=== PATIENT | female | born 1970 | race Caucasian/White ===

== ENCOUNTER 2022-08-07 09:22 | Outpatient (CLI) | payer BC, SELFPAY ==
[2022-08-07 14:04] LABS: Lipase* 72 U/L (23-300)
[2022-08-07 14:23] LABS: TSH With Reflex to FT4* 0.842 uIU/mL (0.270-4.200)
[2022-08-09 15:34] LABS: CRP, High Sensitivity 0.9 mg/L (<=3.0)
== END 2022-08-07 09:23 | disposition home or self-care (01) ==
PROVIDERS: PCP Physician Assistant Medical; Visit Provider Physician Assistant Medical
DX: R10.9 Unspecified abdominal pain (principal); R19.7 Diarrhea, unspecified
CPT/HCPCS: 80053; 83516; 83690; 84443; 86141

== ENCOUNTER 2022-08-08 14:51 | Emergency (ER) | payer BC, SELFPAY ==
[2022-08-08 15:07] VITALS: BP 131/77; PULSE 88; TEMP 36.4; O2SAT 98; BMI 23.7
--- NOTE | 2022-08-08 15:35 | CRLHL7_ITS ---
For Patients: As a result of the Century Cures Act, medical imaging exams and procedure reports are released immediately into your electronic medical record. You may view this report before your referring provider. If you have questions, please contact your health care provider. INDICATION: Right lower quadrant pain. TECHNIQUE: CT abdomen and pelvis acquired with 72 cc Isovue 370 IV contrast. COMPARISON: None. FINDINGS: Lower chest: Scattered dependent atelectasis. Liver: Scattered tiny hypodensities, too small to characterize.. Normal in size and attenuation. No suspicious masses. Gallbladder and bile ducts: Cholecystectomy. Mild intra/extrahepatic ductal dilation, likely reservoir effect. Pancreas: Unremarkable. No mass or inflammation. Spleen: Unremarkable. Normal in size. No masses. Adrenal glands: Unremarkable. No nodules. Kidneys: Mild right greater than left urothelial enhancement. Extrarenal pelvises without hydronephrosis. No definite obstructing renal stone. Few tiny scattered pelvic phleboliths. GI tract: Unremarkable. Normal in caliber. No sign of mass or inflammation. Normal appendix. Vasculature: Abdominal aorta is normal in caliber. Mesenteric arteries are patent. Lymph nodes: No lymphadenopathy. Peritoneum/Abdominal Wall: Tiny fat containing umbilical hernia. No sign of mass or infiltration. No free air or significant free fluid. Pelvis: Bladder is mildly distended with circumferential wall thickening. Bones: Degenerative changes. IMPRESSION: Mild circumferential bladder wall thickening, with subtle [id number]-left urothelial wall enhancement which could suggest urinary tract infection. Recommend correlation with urinalysis. Few pelvic phleboliths. No definite distal obstructing stones or hydronephrosis. No appendicitis, as questioned. Please note that all CT scans at this facility use dose modulation, iterative reconstruction, and/or weight-based dosing when appropriate to reduce radiation dose to as low as reasonably achievable. Dictated by Simon Arevalo MD @ 08/08/2022 4:30:04 PM (Electronically Signed)
--- NOTE | 2022-08-08 15:40 | ED_ITS ---
HPI - Abdominal Pain General Chief Complaint: Abdominal Pain Stated Complaint: Abdominal Pain w Diarrhea Time Seen by Provider: 08/08/22 15:01 History of Present Illness HPI narrative: 52-year-old woman presenting with her to the emergency department with complaint of increasing lower abdominal pain. This is in the setting of about 3 weeks of persistent diarrhea. She has had diarrhea maybe 5 times a day watery stools. Does not sound as though much abdominal pain was associated with this. Started to have a periumbilical maybe little bit above that pain starting 2 days ago which has now concentrated more in the right lower abdomen. Stool analysis was ordered yesterday in clinic. She has none not been on any recent antibiotics. She has not had a fever. Stomach isn't feeling the greatest but not particularly nauseated. Had a cholecystectomy years ago following a for cholecystitis. has not really struggled after that. Sometimes eggs will make her own to the bathroom. But otherwise denies generally food intolerances. This persistent diarrhea is definitely new. Denies dysuria frequency urgency. Menses was 1 week ago and is quite regular on oral contraceptives. Pain initially in her upper abdomen stomach area felt like somebody was reaching in squeezing from the inside. It now she describes it as sharp in the right lower quadrant. It feels better somehow to bring her legs up. Related Data Home Medications Medication Instructions Recorded Confirmed control pill PO 08/07/22 Allergies Allergy/AdvReac Type Severity Reaction Status Date / Time Penicillins Allergy Intermediate Vomiting Verified 08/07/22 09:00 prochlorperazine AdvReac Severe lock jaw Verified 08/07/22 09:00 Review of Systems Status of ROS Reports: 10 or more systems reviewed and unremarkable except as noted in History and below [facility] Medical History (Updated 08/08/22 @ 17:48 by Joey Garcia MD) Sinusitis (2021) Surgical History (Updated 08/07/22 @ 09:45 by Sonali Manzo PA-C) History of cholecystectomy Social History Smoking Status: Never smoker Do you use any of these nicotine containing products: None Second hand tobacco smoke exposure: No How often do you have a drink containing alcohol: never How often do you have six or more drinks on one occasion: Never AUDIT-C Alcohol total score: 0 Non-prescribed substance use: denies use Exam Narrative: Exam Narrative: Pleasant. NAD. Cranial nerves 2-12 intact Breathing easily. Speaking easily. Lungs are clear. Oropharynx is sticky. Cardiovascular with regular rate and rhythm no murmur rub or gallop identified. Abdomen is soft. There is no flank pain. Normoactive bowel sounds. No masses appreciated. She is without peritoneal signs. Clearly very tender in the suprapubic but then also in the right lower abdomen. Moving all extremities without difficulty. Well-perfused. No peripheral edema. Const: Vital Signs, click to edit/add: Vital Signs - 24 hr 08/08/22 15:07 08/08/22 16:15 Temperature 97.5 F L Pulse Rate [Left P ulse Oximeter] 88 73 Blood Pressure [Ri ght Upper Arm] 131/77 132/77 Pulse Oximetry 98 100 Oxygen Delivery Me thod Room Air Room Air Documenting provider has reviewed patient's vital signs: yes Course Course Hospital Course: Initiated on IV fluids and proceed with CT scan. Discussed pain management and we settle on ketorolac. This did decrease her pain to a more tolerable level though clearly still uncomfortable. Consultations Consultation #1: I did call to discuss further with radiology findings on CT. Question particularly for the right adnexal area. We reviewed the images together. Vital Signs Vital signs: Initial Vital Signs Temperature 97.5 F L 08/08/22 15:07 Temperature Source Temporal Artery Scan 08/08/22 15:07 Pulse Rate 88 08/08/22 15:07 Blood Pressure 131/77 08/08/22 15:07 Blood Pressure Mean 95 08/08/22 15:07 Blood Pressure Position Sitting 08/08/22 15:07 Pulse Oximetry 98 08/08/22 15:07 Oxygen Delivery Method 08/08/22 15:07 Vital Signs Temperature 97.5 F L 08/08/22 15:07 Pulse Rate 88 08/08/22 15:07 Blood Pressure 131/77 08/08/22 15:07 Pulse Oximetry 98 08/08/22 15:07 Oxygen Delivery Method 08/08/22 15:07 Temperature 97.5 F L 08/08/22 15:07 Pulse Rate 73 08/08/22 16:15 Blood Pressure 132/77 08/08/22 16:15 Pulse Oximetry 100 08/08/22 16:15 Oxygen Delivery Method 08/08/22 16:15 MDM - Abdominal Pain MDM Narrative Medical decision making narrative: I think leading in the differential is appendicitis. Possibly ovarian matter but that does not sound like this really been an issue for her in the past. Anticipating CT imaging. I am not convinced that this diarrhea is related to her pain. Later mentions that has had a history of ovarian cysts. Urinalysis only with small ketones and trace blood I did review CT images. Clearly appendix is visible and unremarkable. Phleboliths are present. Hard to distinguish ovarian structures on the right from bowel. Radiology over-read IMPRESSION: Mild circumferential bladder wall thickening, with subtle nslwp-[id number]-adui-left urothelial wall enhancement which could suggest urinary tract infection. Recommend correlation with urinalysis. Few pelvic phleboliths. No definite distal obstructing stones or hydronephrosis. No appendicitis, as questioned. Discussed these findings with Ms. Hayes. It is possible that leaking ovarian cyst is contributing to her pain and not clearly evident/visualized on CT. Does not appear to be evidence of ovarian torsion. We discussed proceeding with ultrasound though to obtain further information versus watchful waiting. Initially Ms. Hayes opted to proceed with ultrasound imaging. I contacted Radiology. Was called back to the room as prefers to defer further imaging at this point. I do not think that is unreasonable. Medical Records Attestation: I reviewed the patient's medical records. Lab Data Attestation: I reviewed the patient's lab results. Labs: Lab Results 08/08/22 08/08/22 Range/Units 15:36 15:51 Sodium 140 (135-149) mmol/L Potassium 3.5 L (3.6-5.1) mmol/L Chloride 103 (96-114) mmol/L Carbon Dioxide 25 (20-32) mmol/L BUN 13 (7-30) mg/dL Creatinine 0.7 (0.5-1.5) mg/dL Estimated Creat Clear 89.01 Estimated GFR 105 ml/min Glucose 93 (60-115) mg/dL Calcium 9.3 (8.4-10.6) mg/dL Total Bilirubin 0.7 (0.1-1.5) mg/dL Direct Bilirubin 0.3 (0.0-0.5) mg/dL AST 27 (12-35) U/L ALT 19 (4-35) U/L Alkaline Phosphatase 67 (40-150) U/L C-Reactive Protein < 0.5 L (0.5-1.0) mg/dL Total Protein 7.8 (6.0-8.3) g/dL Albumin 4.9 (3.3-5.0) g/dL Lipase 58 (23-300) U/L Urine Color Yellow (Yellow) Urine Appearance Clear (Clear) Urine pH 7.0 (5.0-8.5) Ur Specific [place] 1.010 (1.000-1.030) Urine Protein Negative (Negative) Urine Glucose (UA) Negative (Negative) Urine Ketones 1+ A (Negative) Urine Blood Trace-intact A (Negative) Urine Nitrite Negative (Negative) Urine Bilirubin Negative (Negative) Urine Urobilinogen 0.2 (0.2-1.0) Ur Leukocyte Esterase Negative (Negative) Urine RBC 0-2 (0-2) Urine WBC 0-2 (0-5) Ur Squamous Epith Cells None (None-Few) Urine Bacteria None (None) Urine HCG, Qual Negative (Negative) Discharge Plan Discharge Clinical Impression: Abdominal pain, right lower quadrant, Diarrhea, History of ovarian cyst Patient Disposition: Home w/ Parent or Adult Condition: Improved Additional Instructions: Hydrate. Can take up to 800 mg of ibuprofen per dose and and the combined with the prescribed Percocet from [facility]. Alternative to the ibuprofen might be up to 500 mg of naproxen 2 times daily. Return for marked increase in persistent pain, repeated vomiting, associated fever. Looks like stool studies are still pending. Hopefully this can shed some light on what you are going through. Prescriptions: No Action control pill PO Follow Up/Referrals: Sonali Manzo PA-C [Primary Care Provider] - Stand Alone Forms: [employer] Info Instructions
[2022-08-08 15:53] LABS: Appearance Urine Clear (Clear); Bilirubin Urine Negative (Negative); Blood Urine Trace-intact (Negative); Color Urine Yellow (Yellow); Glucose Urine Negative (Negative); Ketones Urine 1+ (Negative); Leukocyte Esterase Urine Negative (Negative); Nitrite Urine Negative (Negative); Protein Urine Negative (Negative); Urobilinogen Urine 0.2 (0.2-1.0)
[2022-08-08] MEDS: 0.9 % SODIUM CHLORIDE 1000 ml 1,000 ML IV (15:54)
[2022-08-08] MEDS: KETOROLAC 30 MG/ML inj IVP (15:56)
[2022-08-08 15:59] LABS: RBC Urine 0-2 (0-2); WBC Urine 0-2 (0-5)
[2022-08-08 16:15] VITALS: BP 132/77; PULSE 73; O2SAT 100
[2022-08-08 16:23] LABS: Ur HCG Qualitative* Negative (Negative)
[2022-08-08 16:29] LABS: Albumin* 4.9 g/dL (3.3-5.0); Chloride* 103 mmol/L (96-114)
[2022-08-08 16:30] LABS: Potassium* 3.5 mmol/L (3.6-5.1); Sodium* 140 mmol/L (135-149)
[2022-08-08 16:32] LABS: Creatinine* 0.7 mg/dL (0.5-1.5); Est. Creatinine Clearance* 89.01; Estimated Glomerular Filt Rate 105 ml/min
[2022-08-08 16:33] LABS: Alanine Aminotransferase* 19 U/L (4-35); Alkaline Phosphatase* 67 U/L (40-150); Aspartate Amino Transferase* 27 U/L (12-35); Bilirubin Direct* 0.3 mg/dL (0.0-0.5); Bilirubin Total* 0.7 mg/dL (0.1-1.5); Blood Urea Nitrogen* 13 mg/dL (7-30); Calcium* 9.3 mg/dL (8.4-10.6); Carbon Dioxide* 25 mmol/L (20-32); Glucose* 93 mg/dL (60-115); Lipase* 58 U/L (23-300); Total Protein* 7.8 g/dL (6.0-8.3)
[2022-08-08 16:46] LABS: C Reactive Protein* < 0.5 mg/dL (0.5-1.0)
--- NOTE | 2022-08-08 17:00 | ED.NURSE ---
Report from KEEGAN Darden. I will now assume care of patient. Patient provided warm blankets on request. NS continues to infuse without difficulty, ~10 minutes left on infusion. Pain down to 4/10 at present. Awaiting plan from Dr. Garcia. No further needs at present.
== END 2022-08-08 17:56 | disposition home or self-care (01) ==
PROVIDERS: Emergency Provider Family Medicine; PCP Physician Assistant Medical
DX: R10.31 Right lower quadrant pain (principal); R19.7 Diarrhea, unspecified
CPT/HCPCS: 36415; 74177; 80048; 80076; 81001; 81025; 83690; 86140; 87045; 87046; 87427; 96374; 99284; 99285; J1885; J7030; Q9967

== ENCOUNTER 2022-08-14 12:38 | Outpatient (CLI) | payer BC, SELFPAY ==
--- NOTE | 2022-08-14 14:15 | W.ANESCHARGE ---
Anesthesia Charges Start Date/Time Anesthesia Start Date: 08/14/22 Anesthesia Start Time: 13:36 Stop Date/Time Anesthesia Stop Date: 08/14/22 Anesthesia Stop Time: 14:05 Summary Emergency: No
--- NOTE | 2022-08-14 14:25 | W.ANESCHARGE ---
Anesthesia Charges Start Date/Time Anesthesia Start Date: 08/14/22 Anesthesia Start Time: 13:36 Stop Date/Time Anesthesia Stop Date: 08/14/22 Anesthesia Stop Time: 14:05 Summary Emergency: No
== END 2022-08-14 12:39 | disposition home or self-care (01) ==
PROVIDERS: PCP Physician Assistant Medical; Visit Provider Surgery
DX: Z12.11 Encounter for screening for malignant neoplasm of colon (principal)
CPT/HCPCS: 00811; 45378; 88305; J2704

== ENCOUNTER 2022-08-28 09:45 | Outpatient (CLI) | payer BC, SELFPAY ==
[2022-08-28 13:56] LABS: Potassium* 3.9 mmol/L (3.6-5.1)
== END 2022-08-28 09:46 | disposition home or self-care (01) ==
LOC: LKVREF 09:51
PROVIDERS: PCP Physician Assistant Medical; Visit Provider Physician Assistant Medical
DX: R19.7 Diarrhea, unspecified (principal)
CPT/HCPCS: 84132

== ENCOUNTER 2023-06-07 09:39 | Outpatient (CLI) | payer BC, SELFPAY ==
--- NOTE | 2023-06-07 08:45 | CRLHL7_ITS ---
For Patients: As a result of the Century Cures Act, medical imaging exams and procedure reports are released immediately into your electronic medical record. You may view this report before your referring provider. If you have questions, please contact your health care provider. BILATERAL SCREENING MAMMOGRAM WITH COMPUTER-AIDED DETECTION AND TOMOSYNTHESIS TECHNIQUE: CC and MLO views were obtained. These mammographic images have been obtained using full-field digital technique. These mammographic images were interpreted with the benefit of computer-aided detection. Breast Tomosynthesis was used in this interpretation. COMPARISON FILM: 02/18/18. FINDINGS: The breasts are heterogeneously dense, which may obscure small masses IMPRESSION: There is no radiographic evidence for malignancy. ASSESSMENT: BI-RADS Category 1: Negative RECOMMENDATION: Routine screening mammogram in 1 year. A lay language report of this examination will be provided to the patient. Joey Lira M.D. Diagnostic Radiologist [email or web address] NANCY/emily / be/Dictated by: Joey Lira MD @ 06/08/2023 8:23:00 AM (Electronically Signed)
== END 2023-06-07 09:40 | disposition home or self-care (01) ==
LOC: MAMMO 09:40
PROVIDERS: PCP Obstetrics & Gynecology; Visit Provider Pediatrics
DX: Z12.31 Encounter for screening mammogram for malignant neoplasm of breast (principal); R92.2 Inconclusive mammogram
CPT/HCPCS: 77063; 77067

== ENCOUNTER 2024-06-30 14:12 | Outpatient (CLI) | payer BC, SELFPAY ==
--- NOTE | 2024-06-30 14:40 | CRLHL7_ITS ---
For Patients: As a result of the Century Cures Act, medical imaging exams and procedure reports are released immediately into your electronic medical record. You may view this report before your referring provider. If you have questions, please contact your health care provider. BILATERAL SCREENING MAMMOGRAM WITH COMPUTER-AIDED DETECTION AND TOMOSYNTHESIS TECHNIQUE: CC and MLO views were obtained. These mammographic images have been obtained using full-field digital technique. These mammographic images were interpreted with the benefit of computer-aided detection. Breast Tomosynthesis was used in this interpretation. COMPARISON FILM: 06/07/23, 02/18/18. FINDINGS: The breasts are heterogeneously dense, which may obscure small masses. IMPRESSION: There is no radiographic evidence for malignancy. ASSESSMENT: BI-RADS Category 1: Negative RECOMMENDATION: Routine screening mammogram in 1 year. A lay language report of this examination will be provided to the patient. Joey Lira M.D. Diagnostic Radiologist [email or web address] SP/Dictated by: Joey Lira MD @ 07/01/2024 8:42:00 AM (Electronically Signed)
== END 2024-06-30 14:13 | disposition home or self-care (01) ==
PROVIDERS: PCP Obstetrics & Gynecology; Visit Provider Pediatrics
DX: Z12.31 Encounter for screening mammogram for malignant neoplasm of breast (principal); R92.2 Inconclusive mammogram
CPT/HCPCS: 77063; 77067